=== PATIENT | female | born 1990 | race Caucasian/White ===

== ENCOUNTER 2023-08-12 11:00 | Emergency (ER) | payer BC, MEDICAID ==
[2023-08-12 11:16] VITALS: BP 152/81; PULSE 111
[2023-08-12] MEDS ORDERED: Silver Sulfadiazine 1% Crm 50 GM Tube TOP ONE (11:17)
== END 2023-08-12 11:33 | disposition home or self-care (01) ==
LOC: DL.ED 11:00
DX: T22.112A Burn of first degree of left forearm, initial encounter (principal); X15.8XXA Contact with other hot household appliances, initial encounter; Y27.3XXA Contact with hot household appliance, undetermined intent, initial encounter; Z88.0 Allergy status to penicillin; Z88.6 Allergy status to analgesic agent
CPT/HCPCS: 16020; 99283; A9270-GY